=== PATIENT | male | born 1950 | race Hispanic/Latino ===

== ENCOUNTER 2018-02-13 14:24 | Outpatient (CLI) | payer MEDICARE ==
[2018-02-13 14:57] LABS: Hemoglobin 15.8 g/dL (14.0-18.0); Mean Corpuscular HGB CONC 33.8 g/dL (32.0-36.0); Mean Corpuscular Hemoglobin 31.8 pg (27.0-31.0); Mean Corpuscular Volume 94.1 fl (80.0-94.0); Mean Platelet Volume 7.6 fL (7.4-10.4); Platelet Count 182 thou/uL (130-400); RBC Distribution Width 12.3 % (11.5-14.5); Red Blood Cell (RBC) Count 4.97 mill/uL (4.70-6.10)
[2018-02-13 15:03] LABS: PTT 29.2 SEC (22.9-36.1); Prothrombin Time 13.3 SEC (12.0-14.7)
[2018-02-13 15:16] LABS: Anion Gap 12 mmol/L (10-20); BUN (Urea Nitrogen) 29 mg/dL (8.4-25.7); Calc. Creatinine Clearance 0 mL/min (70-130); Calcium 9.8 mg/dL (7.8-10.44); Carbon Dioxide 26 mmol/L (23-31); Chloride 106 mmol/L (98-107); Estimated GFR-MDRD 53; Glucose 151 mg/dL (80-115); Potassium 3.9 mmol/L (3.5-5.1); Sodium 140 mmol/L (136-145)
== END 2018-02-13 14:25 | disposition home or self-care (01) ==
LOC: LABBT 14:24
PROVIDERS: ATTEND Urology
DX: Z01.812 Encounter for preprocedural laboratory examination (principal); N32.9 Bladder disorder, unspecified; T14.8XXA Other injury of unspecified body region, initial encounter
CPT/HCPCS: 80048; 85027; 85610; 85730

== ENCOUNTER 2018-02-17 05:48 | Day surgery (SDC) | payer MEDICARE ==
[2018-02-13 15:04] VITALS: BMI 24.0
[2018-02-17] MEDS ORDERED: CEFAZOLIN/Water 2 GM/20 ML SYRINGE ONE (06:17)
[2018-02-17] MEDS ORDERED: Fentanyl 100 MCG/2 ML VIAL ONE (06:38)
[2018-02-17] MEDS ORDERED: Midazolam HCl 2 mg/2 ml Vial ONE (07:10)
[2018-02-17] MEDS ORDERED: Iothalamate Meglumine 60% 50 ML VIAL FS ONE (07:19)
--- NOTE | 2018-02-17 08:20 | RAD ---
RETROGRADE PYELOGRAM 7 VIEWS: DATE: 02/17/18. HISTORY: A 68-year-old male with hematuria. FINDINGS: Bilateral ureters are normal in caliber. There is no hydronephrosis. No obvious filling defect is i dentified. IMPRESSION: Negative. POS: [facility]TE[facility]
--- NOTE | 2018-02-17 09:02 | OP ---
DATE OF PROCEDURE: 02/17/2018 PREOPERATIVE DIAGNOSIS: Bladder lesion microhematuria. POSTOPERATIVE DIAGNOSIS: Bladder lesion microhematuria. PROCEDURE PERFORMED: Cystoscopy, bilateral retrograde, bladder biopsies. SURGEON: Keegan Graf M.D. ANESTHESIA: General. ESTIMATED BLOOD LOSS: Minimal. FINDINGS: There is no urethral stricture disease, moderately enlarged prostate gland. There was a s mall papillary lesion adjacent lateral to left ureteral orifice. No other abnormalities noted in the bladder. There were normal retrogrades bilaterally. OPERATIVE TECHNIQUE: Obtained written verbal consent from the patient after receiving IV antibiotics , he was taken to the operating suite. He was placed in supine position on treatment table. PlexiPu lses were placed on his lower extremities and turned on. He was given a general anesthetic and oral obturator intubation, placed in the dorsal lithotomy position, sterilely prepped and draped. Cystosc opy was performed with a 22-German sheath. This was well lubricated, passed under direct vision thro ugh the male urethra and into the urinary bladder with aid of a 30 degree lens and a video camera and monitor. The bladder was filled and emptied a number of times and examined with the 30 and the 70-d egree lens with the findings above. A 5-German cone tip catheter was used for the retrograde studies . A template maker film was taken with the fluoroscopy unit. Right retrograde was done by injecting about 10 -12 mL in a retrograde manner up the right ureter and then the left the same way. Drainage films wer e taken on both sides. I saw no persistent filling defects or abnormalities noted. At this point, u sing a 30 degree lens and a video camera and monitor, we biopsied and removed the small papillary les ion with a pair of cold cup forceps and then used the Bugbee electrode to obtain hemostasis. The angelo dder was emptied. There was good hemostasis. He was taken out of dorsal lithotomy position, awakene d, extubated, and taken by stretcher to the recovery room.
[2018-02-17] MEDS ORDERED: PHENYLEPHRINE-NS 100 MCG/ML 10 ML SYRINGE ONE (16:21)
[2018-02-17] MEDS ORDERED: Ondansetron HCl/PF 4 MG/2 ML Vial ONE (16:21)
[2018-02-17] MEDS ORDERED: Lidocaine 1% PF 5 ML VIAL ONE (16:21)
[2018-02-17] MEDS ORDERED: PROPOFOL 200 MG/20 ML VIAL ONE (16:21)
--- NOTE | 2018-02-17 21:13 | EKG ---
Test Reason : PREOP Blood Pressure : / mmHG Vent. Rate : 059 BPM Atrial Rate : 059 BPM P-R Int : 156 ms QRS Dur : 098 ms QT Int : 404 ms P-R-T Axes : 049 034 090 degrees QTc Int : 399 ms Sinus bradycardia Nonspecific ST and T wave abnormality Abnormal ECG No previous ECGs available Confirmed by RADHA AVITIA ([id number]) on 02/17/2018 9:13:05 PM Referred By: LAURY Confirmed By:RADHA AVITIA
== END 2018-02-17 10:08 | disposition home or self-care (01) ==
LOC: SDC 05:48
PROVIDERS: ATTEND Urology
PROC: 0TBB8ZX Excision of Bladder, Via Natural or Artificial Opening Endoscopic, Diagnostic (ICD-10-PCS; principal; 2018-02-17)
DX: D41.4 Neoplasm of uncertain behavior of bladder (principal)
CPT/HCPCS: 74420; 88305; 93005; 93010; C1758; J2001; J2250; J2405; J2704; J3010; Q9961

== ENCOUNTER 2019-08-17 09:13 | Outpatient (CLI) | payer MEDICARE | END 2019-08-17 09:14 | disposition home or self-care (01) | LOC: BICMRI 09:13 | PROVIDERS: ATTEND Ophthalmology | DX: G51.31 Clonic hemifacial spasm, right (principal) | CPT/HCPCS: 82565 ==

== ENCOUNTER 2020-08-25 13:44 | Outpatient (CLI) | payer MEDICARE ==
--- NOTE | 2020-08-25 15:15 | ULT ---
BILATERAL CAROTID DUPLEX ULTRASOUND: HISTORY: Carotid bruit TECHNIQUE: Grayscale, color-flow and spectral Doppler ultrasound imaging of the extracranial carotid artery syst ems was performed bilaterally. FINDINGS: There is plaque formation on both sides. The peak systolic velocity in the right ICA measures 122 cm/s with an end-diastolic velocity of 19 cm /s and a systolic ratio of 1.4. The peak systolic velocity in the left ICA measures 140 cm/s with an end-diastolic velocity of 15 cm/s and a systolic ratio of 0.80. Flow in both vertebral arteries remains antegrade. IMPRESSION: Moderate (50-69%) stenosis of the left ICA
== END 2020-08-25 13:45 | disposition home or self-care (01) ==
LOC: BICULT 13:44
PROVIDERS: ATTEND Psychiatry & Neurology Neurology
DX: G50.0 Trigeminal neuralgia (principal); R09.89 Other specified symptoms and signs involving the circulatory and respiratory systems; I65.22 Occlusion and stenosis of left carotid artery
CPT/HCPCS: 93880

== ENCOUNTER 2021-11-25 19:48 | Inpatient (IN) | payer MEDICARE, OTHER ==
[2021-11-25] MEDS ORDERED: Aspirin Chewable 81 MG TAB ONE ×2 (20:29→20:31)
[2021-11-25] MEDS ORDERED: Metoprolol Tartrate 5 MG/5 ML VIAL ONE (20:30)
[2021-11-25] MEDS ORDERED: Nitroglycerin 2% Ointment 1 INCH/1 GM Packet ONE (20:30)
[2021-11-25 20:37] LABS: #Eosinphils 0.2 thou/uL (0.0-0.7); #Lymphocytes 2.3 thou/uL (1.20-3.40); #Monocytes 0.6 thou/uL (0.11-0.59); #Neutrophils 3.1 thou/uL (1.40-6.50); %Basophils 0.4 % (0.0-1.0); %Lymphocytes 36.3 % (21.0-51.0); %Monocytes 9.4 % (0.0-10.0); %Neutrophils 49.8 % (42.0-75.0); Hemoglobin 14.6 g/dL (14.0-18.0); Mean Corpuscular HGB CONC 33.3 g/dL (32.0-36.0); Mean Corpuscular Hemoglobin 31.7 pg (27.0-31.0); Mean Platelet Volume 7.5 fL (7.4-10.4); Platelet Count 175 thou/uL (130-400); RBC Distribution Width 11.9 % (11.5-14.5); White Blood Cell (WBC) Count 6.3 thou/uL (4.8-10.8)
[2021-11-25 21:08] LABS: ALT (SGPT) 20 U/L (8-55); AST (SGOT) 20 U/L (5-34); Albumin 3.7 g/dL (3.4-4.8); Alkaline Phosphatase 109 U/L (40-110); Anion Gap 15 mmol/L (10-20); BUN (Urea Nitrogen) 26 mg/dL (8.4-25.7); Bilirubin, Total 0.4 mg/dL (0.2-1.2); CK (CPK) 71 U/L (30-200); Calc. Creatinine Clearance 0 mL/min (70-130); Calcium 8.9 mg/dL (7.8-10.44); Carbon Dioxide 24 mmol/L (23-31); Chloride 104 mmol/L (98-107); Globulin 3.1 g/dL (2.4-3.5); Glucose 176 mg/dL (83-110); Lipase 34 U/L (8-78); Potassium 3.3 mmol/L (3.5-5.1); Protein, Total 6.8 g/dL (5.8-8.1); Sodium 140 mmol/L (136-145)
[2021-11-25] MEDS ORDERED: hydrALAZINE 20 MG/ML VIAL ONE (21:25)
[2021-11-25 23:50] LABS: Troponin I 0.014 ng/mL (< 0.028)
[2021-11-25] MEDS ORDERED: Ondansetron PF 4 MG/2 ML Vial IVP PRN (23:59)
[2021-11-25] MEDS ORDERED: Ondansetron ODT 4 MG TAB PO PRN (23:59)
[2021-11-25] MEDS ORDERED: Acetaminophen 650 MG Suppository PR PRN (23:59)
[2021-11-25] MEDS ORDERED: Dextrose 50% Abboject 50 ML SYRINGE SLOW IVP PRN (23:59)
[2021-11-25] MEDS ORDERED: HumaLOG 300 UNITS/3 ML VIAL SC PRN (23:59)
[2021-11-25] MEDS ORDERED: Dextrose 5% in Water 1,000 ML IV PRN (23:59)
[2021-11-25] MEDS ORDERED: Acetaminophen 325 MG TAB PO PRN (23:59)
[2021-11-26] MEDS ORDERED: Electrolyte Replacement Protocol 1 EACH FS PRN (00:45)
[2021-11-26] MEDS ORDERED: Potassium Chloride 20 MEQ TAB PO SCH (00:45)
[2021-11-26] MEDS ORDERED: Nitroglycerin 0.4 MG TAB (25 Tab Bottle) SL PRN (01:00)
[2021-11-26 01:39] LABS: Magnesium 1.7 mg/dL (1.6-2.6)
[2021-11-26 03:23] LABS: #Basophils 0.1 thou/uL (0.0-0.2); #Eosinphils 0.2 thou/uL (0.0-0.7); #Lymphocytes 2.4 thou/uL (1.20-3.40); #Monocytes 0.5 thou/uL (0.11-0.59); #Neutrophils 2.9 thou/uL (1.40-6.50); %Basophils 0.9 % (0.0-1.0); %Eosinophils 3.1 % (0.0-10.0); %Lymphocytes 39.8 % (21.0-51.0); %Monocytes 8.4 % (0.0-10.0); %Neutrophils 47.8 % (42.0-75.0); Hemoglobin 14.2 g/dL (14.0-18.0); Mean Corpuscular HGB CONC 33.4 g/dL (32.0-36.0); Mean Corpuscular Hemoglobin 31.7 pg (27.0-31.0); Mean Corpuscular Volume 94.8 fL (78.0-98.0); Mean Platelet Volume 7.7 fL (7.4-10.4); Platelet Count 172 thou/uL (130-400); Red Blood Cell (RBC) Count 4.48 mill/uL (4.70-6.10)
[2021-11-26 03:31] LABS: SARS-CoV-2 NAA Rapid Test Not Detected (NotDetected)
[2021-11-26 03:44] LABS: Anion Gap 15 mmol/L (10-20); BUN (Urea Nitrogen) 23 mg/dL (8.4-25.7); Calc. Creatinine Clearance 0 mL/min (70-130); Calcium 8.4 mg/dL (7.8-10.44); Carbon Dioxide 21 mmol/L (23-31); Chloride 105 mmol/L (98-107); Glucose 148 mg/dL (83-110); Magnesium 1.8 mg/dL (1.6-2.6); Sodium 138 mmol/L (136-145)
[2021-11-26] MEDS ORDERED: Potassium Chloride 20 MEQ TAB ONE (03:45)
[2021-11-26 03:48] LABS: Troponin I 0.013 ng/mL (< 0.028)
[2021-11-26] MEDS ORDERED: Aspirin Chewable 81 MG TAB ONE (10:02)
[2021-11-26] MEDS ORDERED: Enoxaparin Sodium 40 MG/0.4 ML SYRINGE ONE (10:02)
[2021-11-26] MEDS ORDERED: hydrALAZINE 20 MG/ML VIAL ONE (10:04)
[2021-11-26] MEDS: Aspirin Chewable 81 MG TAB PO SCH (10:11)
[2021-11-26] MEDS: Enoxaparin Sodium 40 MG/0.4 ML SYRINGE SC SCH (10:11)
[2021-11-26] MEDS: hydrALAZINE 20 MG/ML VIAL SLOW IVP PRN (10:12)
[2021-11-26] MEDS ORDERED: HumaLOG 300 UNITS/3 ML VIAL ONE (10:14)
[2021-11-26] MEDS: HumaLOG 300 UNITS/3 ML VIAL SC PRN ×2 (10:21→17:46)
[2021-11-26 10:33] VITALS: BMI 23.7
[2021-11-26] MEDS ORDERED: Hydrochlorothiazide 25 MG TAB PO SCH (11:00)
[2021-11-26] MEDS ORDERED: Lisinopril 20 MG TAB PO SCH (11:00)
[2021-11-26] MEDS ORDERED: Magnesium 2 GM/50 ML 2 GM in Premix Bag 1 BAG IVPB SCH (11:15)
[2021-11-26] MEDS ORDERED: Magnesium 2 GM/50 ML BAG (IN WATER) ONE (12:04)
[2021-11-26] MEDS ORDERED: cloNIDine 0.1 MG TAB PO SCH (16:00)
[2021-11-26] MEDS: Atorvastatin Calcium 20 MG TAB PO SCH (21:03)
[2021-11-26] MEDS: OXcarbazepine 300 MG TAB PO SCH (21:04)
[2021-11-27] MEDS: hydrALAZINE 20 MG/ML VIAL SLOW IVP PRN ×3 (06:13→23:30)
[2021-11-27] MEDS ORDERED: Hydrochlorothiazide 25 MG TAB PO SCH (09:00)
[2021-11-27] MEDS: Amlodipine 5 MG TAB PO SCH (10:05)
[2021-11-27] MEDS: OXcarbazepine 300 MG TAB PO SCH ×2 (10:06→20:08)
[2021-11-27] MEDS: Aspirin Chewable 81 MG TAB PO SCH (10:06)
[2021-11-27] MEDS: Lisinopril 20 MG TAB PO SCH (10:07)
[2021-11-27] MEDS: Enoxaparin Sodium 40 MG/0.4 ML SYRINGE SC SCH ×2 (10:07→20:06)
[2021-11-27 10:19] LABS: Anion Gap 15 mmol/L (10-20); BUN (Urea Nitrogen) 17 mg/dL (8.4-25.7); Calc. Creatinine Clearance 68 mL/min (70-130); Calcium 9.3 mg/dL (7.8-10.44); Carbon Dioxide 23 mmol/L (23-31); Chloride 103 mmol/L (98-107); Glucose 166 mg/dL (83-110); Potassium 3.3 mmol/L (3.5-5.1); Sodium 138 mmol/L (136-145)
[2021-11-27] MEDS ORDERED: Potassium Chloride 20 MEQ TAB PO SCH (10:30)
[2021-11-27] MEDS: HumaLOG 300 UNITS/3 ML VIAL SC PRN (12:01)
[2021-11-27] MEDS ORDERED: Sodium Chloride 0.9% 1,000 ML IV SCH (13:30)
[2021-11-27] MEDS ORDERED: Metoprolol Tartrate 25 MG TAB PO SCH (13:45)
[2021-11-27] MEDS ORDERED: hydrALAZINE 25 MG TAB PO PRN (16:04)
[2021-11-27] MEDS: Metoprolol Tartrate 25 MG TAB PO SCH (20:07)
[2021-11-27] MEDS: Atorvastatin Calcium 20 MG TAB PO SCH (20:07)
[2021-11-28] MEDS: Aspirin Chewable 81 MG TAB PO SCH (05:19)
[2021-11-28] MEDS: Lisinopril 20 MG TAB PO SCH (05:20)
[2021-11-28] MEDS: Metoprolol Tartrate 25 MG TAB PO SCH ×2 (05:20→22:16)
[2021-11-28] MEDS: Amlodipine 5 MG TAB PO SCH (05:21)
[2021-11-28] MEDS: OXcarbazepine 300 MG TAB PO SCH ×2 (05:22→22:16)
[2021-11-28 05:34] LABS: Anion Gap 15 mmol/L (10-20); BUN (Urea Nitrogen) 19 mg/dL (8.4-25.7); Calc. Creatinine Clearance 68 mL/min (70-130); Calcium 9.1 mg/dL (7.8-10.44); Carbon Dioxide 19 mmol/L (23-31); Cardiac Risk 4.9 (Less than 4.5); Chloride 106 mmol/L (98-107); Cholesterol 163 mg/dl (< 200 Desired); Glucose 132 mg/dL (83-110); HDL Cholesterol 33 mg/dL (>60 Neg Risk); LDL Cholesterol, Calculated 93 mg/dL; Potassium 3.2 mmol/L (3.5-5.1); Sodium 137 mmol/L (136-145); Triglycerides 184 mg/dL (Less than 150)
[2021-11-28] MEDS ORDERED: Sodium Chloride 0.9% 1,000 ML IV SCH ×2 (06:00→07:41)
[2021-11-28] MEDS ORDERED: Potassium Chloride 20 MEQ TAB PO SCH ×2 (06:00→08:00)
[2021-11-28] MEDS ORDERED: Heparin 10,000 UNITS/ 10 ML VIAL ONE (06:21)
[2021-11-28] MEDS ORDERED: Fentanyl 100 MCG/2 ML VIAL ONE (06:59)
[2021-11-28] MEDS ORDERED: Midazolam HCl 2 mg/2 ml Vial ONE (07:00)
[2021-11-28] MEDS ORDERED: Heparin 25,000 units/D5W 500 ML ONE (07:30)
[2021-11-28] MEDS ORDERED: Nitroglycerin 0.4 MG TAB (25 Tab Bottle) SL PRN (07:37)
[2021-11-28] MEDS ORDERED: Acetaminophen/Codeine 30-300mg Tablet PO PRN ×2 (07:37)
[2021-11-28] MEDS ORDERED: Sodium Chloride 0.9% 200 ML IV PRN (07:37)
[2021-11-28] MEDS ORDERED: Heparin 10,000 UNITS/ 10 ML VIAL SLOW IVP SCH (07:45)
[2021-11-28] MEDS ORDERED: Hydrochlorothiazide 25 MG TAB PO SCH (09:00)
[2021-11-28] MEDS ORDERED: hydrALAZINE 20 MG/ML VIAL ONE (10:18)
[2021-11-28] MEDS: hydrALAZINE 20 MG/ML VIAL SLOW IVP PRN (10:20)
[2021-11-28] MEDS ORDERED: Communication Order-Pharmacy FS PRN (10:24)
[2021-11-28] MEDS ORDERED: Iopamidol 370 76% 50 ML VIAL FS ONE (11:04)
[2021-11-28] MEDS ORDERED: Iopamidol 370 76% 100 ML VIAL ONE (11:04)
[2021-11-28] MEDS: Atorvastatin Calcium 20 MG TAB PO SCH (22:16)
[2021-11-29 04:09] LABS: Anion Gap 11 mmol/L (10-20); BUN (Urea Nitrogen) 12 mg/dL (8.4-25.7); Calc. Creatinine Clearance 95 mL/min (70-130); Calcium 7.3 mg/dL (7.8-10.44); Carbon Dioxide 17 mmol/L (23-31); Chloride 112 mmol/L (98-107); Glucose 126 mg/dL (83-110); Potassium 2.9 mmol/L (3.5-5.1); Sodium 137 mmol/L (136-145)
[2021-11-29] MEDS: Potassium Chloride 40 MEQ in Sodium Chloride 0.9% 250 ML 250 ML IVPB SCH ×2 (04:36→08:21)
[2021-11-29] MEDS ORDERED: Dexamethasone 4 mg/ml Vial ONE (06:38)
[2021-11-29] MEDS ORDERED: Albumin 5% 500 ML ONE (06:38)
[2021-11-29] MEDS ORDERED: Bupivacaine PF 0.5% 30 ML VIAL ONE (06:38)
[2021-11-29] MEDS ORDERED: EPINEPHrine 1 MG/ML AMP ONE (06:38)
[2021-11-29] MEDS ORDERED: Phenylephrine 10 MG/ML VIAL ONE (06:57)
[2021-11-29] MEDS ORDERED: Fentanyl 250 MCG/5 ML VIAL ONE ×3 (06:57→06:58)
[2021-11-29] MEDS ORDERED: Midazolam HCl 5 mg/5 ml Vial ONE (06:59)
[2021-11-29] MEDS ORDERED: Metoprolol Tartrate 5 MG/5 ML VIAL ONE (07:09)
[2021-11-29] MEDS ORDERED: ceFAZolin Sodium/D5W 2 GM in Premix Bag 1 BAG IVPB SCH (07:30)
[2021-11-29] MEDS ORDERED: Heparin 10,000 UNITS/1 ML VIAL 30,000 UNITS in Sodium Chloride 0.9% 1,000 ML FS SCH (07:30)
[2021-11-29] MEDS ORDERED: Metoprolol Tartrate 5 MG/5 ML VIAL IVP SCH (07:30)
[2021-11-29] MEDS ORDERED: Vecuronium 10 MG VIAL ONE (07:39)
[2021-11-29] MEDS ORDERED: Nitroglycerin 50 MG/250 ML BOT ONE (07:39)
[2021-11-29] MEDS ORDERED: Cardioplegic Soln 1,000 ML BAG ONE (07:39)
[2021-11-29] MEDS ORDERED: ePHEDrine 50 MG/ML VIAL ONE (07:39)
[2021-11-29] MEDS ORDERED: Lidocaine 2% PF 100 mg/5 ml Syringe ONE (07:39)
[2021-11-29] MEDS ORDERED: Magnesium Sulfate 1 GM/2 ML VIAL ONE (07:39)
[2021-11-29] MEDS ORDERED: PROPOFOL 200 MG/20 ML VIAL ONE (07:39)
[2021-11-29] MEDS ORDERED: Norepinephrine 4 MG/4 ML VIAL ONE (07:39)
[2021-11-29] MEDS ORDERED: Aminocaproic Acid 5 GM/20 ML VIAL ONE (07:39)
[2021-11-29] MEDS ORDERED: Heparin 30,000 units/30 ml VIAL ONE (07:39)
[2021-11-29] MEDS ORDERED: Lidocaine 2% PF 5 ML VIAL ONE (07:39)
[2021-11-29] MEDS ORDERED: Papaverine 60 MG/2 ML VIAL ONE (07:39)
[2021-11-29] MEDS ORDERED: Mannitol 12.5 GM/50 ML ONE (07:39)
[2021-11-29] MEDS ORDERED: Heparin 5,000 UNITS/ML VIAL ONE (07:39)
[2021-11-29] MEDS ORDERED: Potassium Chloride 60 MEQ/30 ML VIAL ONE (07:39)
[2021-11-29] MEDS ORDERED: Sodium Bicarb 50 MEQ/50 ML Abboject 8.4% SYRINGE ONE (07:39)
[2021-11-29] MEDS ORDERED: Thrombin 5000 UNITS/5 ML VIAL ONE (07:39)
[2021-11-29] MEDS ORDERED: Rocuronium Bromide 10 MG/ML (10ML VIAL) ONE (07:39)
[2021-11-29] MEDS ORDERED: ceFAZolin 2 GM/Dextrose 50 ML IVPB ONE (08:04)
[2021-11-29] MEDS: Lisinopril 20 MG TAB PO SCH (08:21)
[2021-11-29] MEDS: Metoprolol Tartrate 25 MG TAB PO SCH (08:21)
[2021-11-29] MEDS ORDERED: PHENYLEPHRINE-NS 100 MCG/ML 10 ML SYRINGE ONE (09:26)
[2021-11-29 11:44] LABS: Actual Bicarbonate (HCO3a) 21.8 mEq/L (22-28); Base Excess (BEa) -3.4 mEq/L (-2.0 to +3.0); CO2 Tension 39.5 mmHg (35.0-45.0); Carboxyhemoglobin (COHb) 0.5 gm% (0.0-3.0); Hemoglobin (Hb) 12.5 g/dL (14.0-18.0); O2 Tension (PaO2), arterial 139.6 mmHg (> 70.0); Potassium - ABG Lab 3.86 mmol/L (3.70-5.30); pH, Arterial 7.36 (7.35-7.45)
[2021-11-29 11:47] LABS: Puncture Site Arterial Line
[2021-11-29] MEDS ORDERED: Fentanyl 100 MCG/2 ML VIAL ONE (11:47)
[2021-11-29 11:50] LABS: ALV-art Gradient 238.825 mmHg (0-20)
[2021-11-29] MEDS ORDERED: Nitroglycerin 50 MG/250 ML BOT 250 ML ONE (11:54)
[2021-11-29] MEDS ORDERED: Acetaminophen 325 MG TAB PO PRN (11:55)
[2021-11-29] MEDS ORDERED: Guaifenesin DM 100-10/5 ML UDCUP PO PRN (11:55)
[2021-11-29] MEDS ORDERED: Magnesium 2 GM/50 ML 2 GM in Premix Bag 1 BAG IVPB SCH (11:55)
[2021-11-29] MEDS ORDERED: Hetastarch 6% 500 ML 500 ML IVPB PRN (11:55)
[2021-11-29] MEDS ORDERED: Ondansetron PF 4 MG/2 ML Vial IVP PRN (11:55)
[2021-11-29] MEDS ORDERED: Fentanyl 100 MCG/2 ML VIAL SLOW IVP PRN ×2 (11:55)
[2021-11-29] MEDS ORDERED: Morphine 2 MG/ML VIAL SLOW IVP PRN (11:55)
[2021-11-29] MEDS ORDERED: Bisacodyl 5 MG TAB PO PRN (11:55)
[2021-11-29] MEDS ORDERED: Bisacodyl 10 MG SUPP PR PRN (11:55)
[2021-11-29] MEDS ORDERED: Nitroglycerin 50 MG/250 ML BOT 250 ML IVPB PRN (11:55)
[2021-11-29] MEDS ORDERED: Norepinephrine 8 MG/0.9% NS 250 ML IVPB PRN (11:55)
[2021-11-29] MEDS ORDERED: traMADol HCl 50 MG TAB PO PRN ×2 (11:55)
[2021-11-29] MEDS ORDERED: Mag-Al 1200 mg/1200 mg/30 ML UDCUP PO PRN (11:55)
[2021-11-29] MEDS ORDERED: Post-Op Insulin Drip Protocol IVPB ONE (11:55)
[2021-11-29] MEDS ORDERED: D5 1/2 NS w/20 mEq KCL 1,000 ML IV SCH (11:55)
[2021-11-29] MEDS ORDERED: niCARdipine 25 MG in Sodium Chloride 0.9% 250 ML 250 ML IVPB PRN (11:55)
[2021-11-29 12:04] LABS: #Eosinphils 0.2 thou/uL (0.0-0.7); #Lymphocytes 2.5 thou/uL (1.20-3.40); #Monocytes 0.4 thou/uL (0.11-0.59); #Neutrophils 9.8 thou/uL (1.40-6.50); %Basophils 0.3 % (0.0-1.0); %Eosinophils 1.4 % (0.0-10.0); %Lymphocytes 19.1 % (21.0-51.0); %Monocytes 3.1 % (0.0-10.0); %Neutrophils 76.1 % (42.0-75.0); Hemoglobin 12.1 g/dL (14.0-18.0); Mean Corpuscular HGB CONC 32.5 g/dL (32.0-36.0); Mean Corpuscular Hemoglobin 31.4 pg (27.0-31.0); Mean Corpuscular Volume 96.4 fL (78.0-98.0); Platelet Count 139 thou/uL (130-400); RBC Distribution Width 12.1 % (11.5-14.5); Red Blood Cell (RBC) Count 3.84 mill/uL (4.70-6.10); White Blood Cell (WBC) Count 12.9 thou/uL (4.8-10.8)
[2021-11-29] MEDS ORDERED: Dextrose 5% in Water 1,000 ML IV PRN (12:15)
[2021-11-29] MEDS ORDERED: Dextrose 50% Abboject 50 ML SYRINGE SLOW IVP PRN (12:15)
[2021-11-29] MEDS ORDERED: HUMULIN R 100 UNITS in Sodium Chloride 0.9% 100 ML IVPB SCH (12:15)
[2021-11-29 12:24] LABS: INR-International Normal Ratio 1.3; Prothrombin Time 16.8 sec (12.0-14.7)
[2021-11-29 12:25] LABS: PTT 33.8 sec (22.9-36.1)
[2021-11-29 12:26] LABS: Anion Gap 16 mmol/L (10-20); BUN (Urea Nitrogen) 13 mg/dL (8.4-25.7); Calc. Creatinine Clearance 71 mL/min (70-130); Calcium 8.1 mg/dL (7.8-10.44); Carbon Dioxide 19 mmol/L (23-31); Chloride 108 mmol/L (98-107); Glucose 173 mg/dL (83-110); Potassium 3.9 mmol/L (3.5-5.1); Sodium 139 mmol/L (136-145)
[2021-11-29] MEDS ORDERED: Ziprasidone 20 MG VIAL IM SCH (12:30)
[2021-11-29] MEDS ORDERED: Sterile Water 10 ML VIAL FS PRN (12:30)
[2021-11-29] MEDS: Ketorolac Tromethamine 30 MG/ML VIAL IVP SCH ×2 (12:36→18:29)
[2021-11-29] MEDS ORDERED: Potassium Chloride 20 MEQ/100 ML PREMIX BAG ONE (14:01)
[2021-11-29] MEDS: Potassium Chloride 20 MEQ/100 ML PREMIX BAG IVPB PRN ×2 (14:34→19:28)
[2021-11-29] MEDS: Insulin Regular 300 UNITS/3 ML VIAL SC PRN (15:26)
[2021-11-29] MEDS ORDERED: hydrALAZINE 20 MG/ML VIAL SLOW IVP PRN (15:52)
[2021-11-29] MEDS: hydrALAZINE 20 MG/ML VIAL SLOW IVP PRN (16:38)
[2021-11-29] MEDS: ceFAZolin 2 GM/Dextrose 50 ML 2 GM in Premix Bag 1 BAG IVPB SCH (16:49)
[2021-11-29 17:08] LABS: Hemoglobin 13.7 g/dL (14.0-18.0)
[2021-11-29 17:21] LABS: Potassium 3.9 mmol/L (3.5-5.1)
[2021-11-29] MEDS: Famotidine/PF 20 mg/2ml Vial SLOW IVP SCH (21:05)
[2021-11-29] MEDS: Atorvastatin Calcium 40 MG TAB PO SCH (21:06)
[2021-11-30] MEDS: ceFAZolin 2 GM/Dextrose 50 ML 2 GM in Premix Bag 1 BAG IVPB SCH ×2 (00:15→08:18)
[2021-11-30] MEDS: Ketorolac Tromethamine 30 MG/ML VIAL IVP SCH ×4 (00:16→18:21)
[2021-11-30 04:05] LABS: #Lymphocytes 1.1 thou/uL (1.20-3.40); #Monocytes 0.8 thou/uL (0.11-0.59); #Neutrophils 10.2 thou/uL (1.40-6.50); %Monocytes 6.4 % (0.0-10.0); %Neutrophils 84.5 % (42.0-75.0); Hemoglobin 12.7 g/dL (14.0-18.0); Mean Corpuscular HGB CONC 33.4 g/dL (32.0-36.0); Mean Corpuscular Hemoglobin 31.9 pg (27.0-31.0); Mean Corpuscular Volume 95.7 fL (78.0-98.0); Mean Platelet Volume 8.6 fL (7.4-10.4); Platelet Count 131 thou/uL (130-400); RBC Distribution Width 12.2 % (11.5-14.5); Red Blood Cell (RBC) Count 3.99 mill/uL (4.70-6.10); White Blood Cell (WBC) Count 12.1 thou/uL (4.8-10.8)
[2021-11-30 04:23] LABS: Anion Gap 16 mmol/L (10-20); BUN (Urea Nitrogen) 15 mg/dL (8.4-25.7); Calc. Creatinine Clearance 69 mL/min (70-130); Calcium 8.2 mg/dL (7.8-10.44); Carbon Dioxide 18 mmol/L (23-31); Chloride 106 mmol/L (98-107); Glucose 126 mg/dL (83-110); Potassium 3.9 mmol/L (3.5-5.1); Sodium 136 mmol/L (136-145)
[2021-11-30] MEDS: hydrALAZINE 20 MG/ML VIAL SLOW IVP PRN (04:53)
[2021-11-30] MEDS: Potassium Chloride 20 MEQ/100 ML PREMIX BAG IVPB PRN (05:00)
[2021-11-30] MEDS: Famotidine/PF 20 mg/2ml Vial SLOW IVP SCH (08:18)
[2021-11-30] MEDS: Magnesium 2 GM/50 ML 2 GM in Premix Bag 1 BAG IVPB SCH (08:19)
[2021-11-30] MEDS ORDERED: Aspirin 325 MG TAB PO SCH (09:00)
[2021-11-30] MEDS ORDERED: Guaifenesin DM 100-10/5 ML UDCUP PO PRN (09:33)
[2021-11-30] MEDS ORDERED: Nitroglycerin 0.4 MG TAB (25 Tab Bottle) SL PRN (09:33)
[2021-11-30] MEDS ORDERED: diphenhydrAMINE 25 MG CAP PO PRN (09:33)
[2021-11-30] MEDS ORDERED: Milk Of Magnesia 30 ML UDCUP PO PRN (09:33)
[2021-11-30] MEDS ORDERED: Mag-Al 1200 mg/1200 mg/30 ML UDCUP PO PRN (09:33)
[2021-11-30] MEDS ORDERED: Bisacodyl 5 MG TAB PO PRN (09:33)
[2021-11-30] MEDS ORDERED: Zolpidem Tartrate 5 MG TAB PO PRN (09:33)
[2021-11-30] MEDS ORDERED: Bisacodyl 10 MG SUPP PR PRN (09:33)
[2021-11-30] MEDS ORDERED: Mineral Oil ENEMA PR PRN (09:33)
[2021-11-30] MEDS ORDERED: Metoprolol Tartrate 25 MG TAB PO SCH ×2 (11:00→21:00)
[2021-11-30] MEDS: Insulin Regular 300 UNITS/3 ML VIAL SC PRN ×3 (11:24→21:28)
[2021-11-30] MEDS: Atorvastatin Calcium 40 MG TAB PO SCH (21:14)
[2021-12-01] MEDS: Ketorolac Tromethamine 30 MG/ML VIAL IVP SCH ×4 (00:11→17:27)
[2021-12-01] MEDS ORDERED: Non-Formulary Item 1 EACH (Semaglutide [Ozempic] 0.25 MG/0.2 ML Pen.Injctr) FS SCH (07:15)
[2021-12-01] MEDS: OXcarbazepine 300 MG TAB PO SCH ×2 (09:03→20:52)
[2021-12-01] MEDS: Magnesium 2 GM/50 ML 2 GM in Premix Bag 1 BAG IVPB SCH (09:03)
[2021-12-01] MEDS: Aspirin 325 mg Enteric Coated Tablet PO SCH (09:04)
[2021-12-01] MEDS: Empagliflozin 10 MG TAB PO SCH (09:04)
[2021-12-01] MEDS: Furosemide 40 MG TAB PO SCH (09:05)
[2021-12-01] MEDS: Potassium Chloride 10 MEQ TAB PO SCH (09:05)
[2021-12-01] MEDS: metFORMIN 500 MG TAB PO SCH (09:05)
[2021-12-01] MEDS: Carvedilol 3.125 MG TAB PO SCH ×2 (09:19→17:27)
[2021-12-01] MEDS: Atorvastatin Calcium 40 MG TAB PO SCH (20:52)
[2021-12-01] MEDS: Insulin Regular 300 UNITS/3 ML VIAL SC PRN (21:37)
[2021-12-02] MEDS: Ketorolac Tromethamine 30 MG/ML VIAL IVP SCH ×3 (00:59→13:02)
[2021-12-02 03:38] LABS: Hemoglobin 11.8 g/dL (14.0-18.0); Mean Corpuscular HGB CONC 32.9 g/dL (32.0-36.0); Mean Corpuscular Hemoglobin 31.9 pg (27.0-31.0); Mean Corpuscular Volume 97.1 fL (78.0-98.0); Platelet Count 148 thou/uL (130-400); RBC Distribution Width 12.1 % (11.5-14.5); Red Blood Cell (RBC) Count 3.69 mill/uL (4.70-6.10); White Blood Cell (WBC) Count 8.6 thou/uL (4.8-10.8)
[2021-12-02 03:58] LABS: ALT (SGPT) 18 U/L (8-55); AST (SGOT) 34 U/L (5-34); Alkaline Phosphatase 73 U/L (40-110); Anion Gap 13 mmol/L (10-20); BUN (Urea Nitrogen) 28 mg/dL (8.4-25.7); Bilirubin, Total 0.8 mg/dL (0.2-1.2); Calc. Creatinine Clearance 62 mL/min (70-130); Calcium 8.2 mg/dL (7.8-10.44); Carbon Dioxide 23 mmol/L (23-31); Chloride 106 mmol/L (98-107); Globulin 2.8 g/dL (2.4-3.5); Glucose 97 mg/dL (83-110); Potassium 3.5 mmol/L (3.5-5.1); Protein, Total 5.8 g/dL (5.8-8.1); Sodium 138 mmol/L (136-145)
[2021-12-02] MEDS: metFORMIN 500 MG TAB PO SCH (08:52)
[2021-12-02] MEDS: Carvedilol 3.125 MG TAB PO SCH (08:52)
[2021-12-02] MEDS: Furosemide 40 MG TAB PO SCH (08:52)
[2021-12-02] MEDS: OXcarbazepine 300 MG TAB PO SCH (08:52)
[2021-12-02] MEDS: Empagliflozin 10 MG TAB PO SCH (08:52)
[2021-12-02] MEDS: Aspirin 325 mg Enteric Coated Tablet PO SCH (08:52)
[2021-12-02] MEDS: Potassium Chloride 10 MEQ TAB PO SCH (08:52)
[2021-12-02] MEDS: hydrALAZINE 20 MG/ML VIAL SLOW IVP PRN (09:02)
[2021-12-02 12:25] VITALS: TEMP 98.4
[2021-12-02] MEDS ORDERED: Albuterol Sulfate 1.25 MG/3 ML NEB ONE (12:46)
[2021-12-02] MEDS: Insulin Regular 300 UNITS/3 ML VIAL SC PRN (13:03)
[2021-12-02 16:18] VITALS: BP 152/88
[2021-12-03] MEDS ORDERED: Multivit, Chewable SF 1 TAB PO SCH (09:00)
== END 2021-12-02 16:00 | disposition home or self-care (01) | DRG 234 ==
LOC: ERS 19:48 → ERHOLD 21:42 → 2NO 11-26 16:51 → CCU 11-28 07:42 → 2NO 12-01 18:48
PROVIDERS: ADMIT Student in an Organized Health Care Education/Training Program; ATTEND Internal Medicine
PROC: 4A023N7 Measurement of Cardiac Sampling and Pressure, Left Heart, Percutaneous Approach (ICD-10-PCS; principal; 2021-11-28)
PROC: B2111ZZ Fluoroscopy of Multiple Coronary Arteries using Low Osmolar Contrast (ICD-10-PCS; 2021-11-28)
PROC: B2151ZZ Fluoroscopy of Left Heart using Low Osmolar Contrast (ICD-10-PCS; 2021-11-28)
PROC: 0213099 Bypass Coronary Artery, Four or More Arteries from Left Internal Mammary with Autologous Venous Tissue, Open Approach (ICD-10-PCS; 2021-11-29)
PROC: 0213093 Bypass Coronary Artery, Four or More Arteries from Coronary Artery with Autologous Venous Tissue, Open Approach (ICD-10-PCS; 2021-11-29)
PROC: 06BQ4ZZ Excision of Left Saphenous Vein, Percutaneous Endoscopic Approach (ICD-10-PCS; 2021-11-29)
PROC: 5A1221Z Performance of Cardiac Output, Continuous (ICD-10-PCS; 2021-11-29)
DX: I25.10 Atherosclerotic heart disease of native coronary artery without angina pectoris (principal); I16.1 Hypertensive emergency; N17.9 Acute kidney failure, unspecified; I50.42 Chronic combined systolic (congestive) and diastolic (congestive) heart failure; I13.0 Hypertensive heart and chronic kidney disease with heart failure and stage 1 through stage 4 chronic kidney disease, or unspecified chronic kidney disease; Z20.822 Contact with and (suspected) exposure to COVID-19; E78.5 Hyperlipidemia, unspecified; I16.0 Hypertensive urgency; E11.22 Type 2 diabetes mellitus with diabetic chronic kidney disease; N18.9 Chronic kidney disease, unspecified; E87.6 Hypokalemia; G40.909 Epilepsy, unspecified, not intractable, without status epilepticus; Z79.84 Long term (current) use of oral hypoglycemic drugs; Z87.891 Personal history of nicotine dependence; Z79.899 Other long term (current) drug therapy; Z79.82 Long term (current) use of aspirin; D72.829 Elevated white blood cell count, unspecified
CPT/HCPCS: 36415; 36416; 36430; 71045; 78452; 80048; 80053; 80061; 82550; 82805; 83690; 83735; 83880; 84132; 84484; 85025; 85027; 85347; 85610; 85730; 86850; 86900; 86901; 93005; 93010; 93017; 93306; 93458; 93798; 94002; 94150; 94760; 96374; 96375; 97139; 99152; 99153; A9500; J0171; J0360; J0690; J1100; J1644; J1650; J1815; J1885; J2001; J2150; J2250; J2370; J2440; J2704; J3010; J3370; J3475; J3480; J3486; J3490; J7050; P9045; Q9967; S0017; S0020; S0028; U0002

== ENCOUNTER 2022-08-29 08:32 | Outpatient (CLI) | payer MEDICARE | END 2022-08-29 08:33 | disposition home or self-care (01) | LOC: RAD 08:32 | PROVIDERS: ATTEND Otolaryngology | DX: R13.11 Dysphagia, oral phase (principal); R13.12 Dysphagia, oropharyngeal phase; R63.39 Other feeding difficulties | CPT/HCPCS: 74230 ==

== ENCOUNTER 2022-09-02 13:28 | Inpatient (IN) | payer MEDICARE ==
[2022-09-02] MEDS ORDERED: Labetalol HCl 100 MG/20 ML VIAL ONE (14:22)
[2022-09-02] MEDS ORDERED: Ondansetron PF 4 MG/2 ML Vial ONE (14:22)
[2022-09-02 14:36] LABS: #Basophils 0.1 thou/uL (0.0-0.2); #Eosinphils 0.1 thou/uL (0.0-0.7); #Lymphocytes 2.1 thou/uL (1.20-3.40); #Monocytes 0.5 thou/uL (0.11-0.59); #Neutrophils 6.3 thou/uL (1.40-6.50); %Basophils 0.6 % (0.0-1.0); %Eosinophils 1.2 % (0.0-10.0); %Lymphocytes 22.8 % (21.0-51.0); %Monocytes 5.9 % (0.0-10.0); %Neutrophils 69.6 % (42.0-75.0); Hemoglobin 14.1 g/dL (14.0-18.0); Mean Corpuscular Hemoglobin 31.5 pg (27.0-31.0); Mean Corpuscular Volume 98.3 fL (78.0-98.0); Mean Platelet Volume 8.6 fL (7.4-10.4); Platelet Count 160 thou/uL (130-400); RBC Distribution Width 11.9 % (11.5-14.5); Red Blood Cell (RBC) Count 4.48 mill/uL (4.70-6.10); White Blood Cell (WBC) Count 9.1 thou/uL (4.8-10.8)
[2022-09-02 14:45] LABS: ALT (SGPT) 40 U/L (8-55); AST (SGOT) 31 U/L (5-34); Albumin 3.8 g/dL (3.4-4.8); Alkaline Phosphatase 114 U/L (40-110); Anion Gap 14 mmol/L (10-20); BUN (Urea Nitrogen) 23 mg/dL (8.4-25.7); Bilirubin, Total 0.9 mg/dL (0.2-1.2); Calc. Creatinine Clearance 0 mL/min (70-130); Calcium 9.9 mg/dL (7.8-10.44); Carbon Dioxide 29 mmol/L (23-31); Chloride 102 mmol/L (98-107); Estimated GFR 59; Globulin 4.2 g/dL (2.4-3.5); Glucose 122 mg/dL (83-110); Sodium 141 mmol/L (136-145)
[2022-09-02 15:08] LABS: Bacteria/HPF None Seen HPF (None Seen); Bilirubin Negative (Negative); Blood, Urine Negative (Negative); Clarity Clear (Clear); Glucose, Urine (Dipstick) Greater than 1000 mg/dL (Negative); Ketone, Urine 20 mg/dL (Negative); Leukocyte Negative Leu/uL (Negative); Nitrite Negative (Negative); Protein, Urine (Dipstick) 70 mg/dL (Neg-Trace); RBC/HPF 0-3 HPF (0-3); Specific Gravity, Urine 1.025 (1.002-1.036); Squamous Epithelial 0-3 HPF (0-3); Urobilinogen Normal mg/dL (Less than 2); WBC/HPF 0-3 HPF (0-3); pH, Urine 6.5 (5.0-9.0)
[2022-09-02] MEDS ORDERED: Magnevist 469MG/ML 20 ML VIAL ONE ×2 (15:40)
[2022-09-02] MEDS ORDERED: Ondansetron PF 4 MG/2 ML Vial IVP PRN (17:47)
[2022-09-02] MEDS ORDERED: Dextrose 5% in Water 1,000 ML IV PRN (18:14)
[2022-09-02] MEDS ORDERED: Dextrose 50% Abboject 50 ML SYRINGE SLOW IVP PRN (18:14)
[2022-09-02] MEDS ORDERED: Labetalol HCl 100 MG/20 ML VIAL SLOW IVP SCH (18:30)
[2022-09-02] MEDS ORDERED: Morphine 2 MG/ML VIAL SLOW IVP PRN (18:46)
[2022-09-02] MEDS: hydrALAZINE 20 MG/ML VIAL SLOW IVP PRN (21:27)
[2022-09-02] MEDS: Sodium Chloride 0.9% 1,000 ML IV SCH (21:33)
[2022-09-02] MEDS: Fluticasone Propionate Nasal Spray 16 gm Bottle NASAL SCH (22:25)
[2022-09-02] MEDS: Sodium Chloride 0.65% Nasal 44 ML BOT EA NARE PRN (23:51)
[2022-09-03] MEDS: Sodium Chloride 0.65% Nasal 44 ML BOT EA NARE PRN (05:55)
[2022-09-03 06:02] LABS: #Eosinphils 0.1 thou/uL (0.0-0.7); #Lymphocytes 1.4 thou/uL (1.20-3.40); #Monocytes 0.5 thou/uL (0.11-0.59); #Neutrophils 5.4 thou/uL (1.40-6.50); %Basophils 0.2 % (0.0-1.0); %Eosinophils 0.8 % (0.0-10.0); %Lymphocytes 19.3 % (21.0-51.0); %Monocytes 6.2 % (0.0-10.0); %Neutrophils 73.4 % (42.0-75.0); Hemoglobin 12.6 g/dL (14.0-18.0); Mean Corpuscular HGB CONC 31.9 g/dL (32.0-36.0); Mean Corpuscular Hemoglobin 31.1 pg (27.0-31.0); Mean Corpuscular Volume 97.6 fL (78.0-98.0); Mean Platelet Volume 8.1 fL (7.4-10.4); Platelet Count 179 thou/uL (130-400); RBC Distribution Width 11.9 % (11.5-14.5); Red Blood Cell (RBC) Count 4.05 mill/uL (4.70-6.10); White Blood Cell (WBC) Count 7.4 thou/uL (4.8-10.8)
[2022-09-03 06:24] LABS: ALT (SGPT) 29 U/L (8-55); AST (SGOT) 17 U/L (5-34); Albumin 3.5 g/dL (3.4-4.8); Alkaline Phosphatase 101 U/L (40-110); Anion Gap 14 mmol/L (10-20); BUN (Urea Nitrogen) 20 mg/dL (8.4-25.7); Bilirubin, Total 0.8 mg/dL (0.2-1.2); Calc. Creatinine Clearance 0 mL/min (70-130); Calcium 9.3 mg/dL (7.8-10.44); Carbon Dioxide 26 mmol/L (23-31); Chloride 104 mmol/L (98-107); Estimated GFR 74; Globulin 3.4 g/dL (2.4-3.5); Glucose 110 mg/dL (83-110); Potassium 3.6 mmol/L (3.5-5.1); Protein, Total 6.9 g/dL (5.8-8.1); Sodium 140 mmol/L (136-145)
[2022-09-03] MEDS: Sodium Chloride 0.9% 1,000 ML IV SCH (08:11)
[2022-09-03] MEDS: Fluticasone Propionate Nasal Spray 16 gm Bottle NASAL SCH ×2 (08:11→22:03)
[2022-09-03] MEDS ORDERED: Lorazepam 2 MG/ML VIAL SLOW IVP SCH (08:30)
[2022-09-03] MEDS ORDERED: Amino Acids 4.25 %/Dextrose 5% 2,000 ML BAG IV SCH (09:59)
[2022-09-03] MEDS: hydrALAZINE 20 MG/ML VIAL SLOW IVP PRN ×2 (11:01→20:47)
[2022-09-03] MEDS: D5W-AA 4.25% with LYTES 1,000 ML IV SCH (11:55)
[2022-09-03 12:50] VITALS: BMI 18.1
[2022-09-04] MEDS: HumaLOG 300 UNITS/3 ML VIAL SC PRN (00:40)
[2022-09-04] MEDS: D5W-AA 4.25% with LYTES 1,000 ML IV SCH (01:11)
[2022-09-04 05:27] LABS: INR-International Normal Ratio 1.1; PTT 34.4 sec (22.9-36.1)
[2022-09-04 05:45] LABS: Anion Gap 12 mmol/L (10-20); BUN (Urea Nitrogen) 25 mg/dL (8.4-25.7); Calc. Creatinine Clearance 51 mL/min (70-130); Calcium 9.9 mg/dL (7.8-10.44); Carbon Dioxide 25 mmol/L (23-31); Chloride 101 mmol/L (98-107); Estimated GFR 72; Glucose 158 mg/dL (83-110); Phosphorus 2.8 mg/dL (2.3-4.7); Potassium 3.3 mmol/L (3.5-5.1); Sodium 135 mmol/L (136-145)
[2022-09-04] MEDS: hydrALAZINE 20 MG/ML VIAL SLOW IVP PRN (08:28)
[2022-09-04] MEDS: Fluticasone Propionate Nasal Spray 16 gm Bottle NASAL SCH ×2 (08:28→20:54)
[2022-09-04] MEDS ORDERED: fentaNYL Citrate/PF 100 MCG/2 ML SYRINGE ONE (08:59)
[2022-09-04] MEDS ORDERED: Oxymetazoline HCl 0.05% (30 ML BOT) ONE ×2 (09:06→09:07)
[2022-09-04] MEDS ORDERED: Lidocaine 1% (PF) 30 ML VIAL ONE (09:06)
[2022-09-04] MEDS ORDERED: EPINEPHrine 1 MG/ML AMP ONE (09:06)
[2022-09-04] MEDS ORDERED: PROPOFOL 200 MG/20 ML VIAL ONE (09:33)
[2022-09-04] MEDS ORDERED: NEOSTIGMINE 3 MG/3 ML SYR 3 MG/3 ML SYRINGE ONE (09:33)
[2022-09-04] MEDS ORDERED: Ondansetron PF 4 MG/2 ML Vial ONE (09:33)
[2022-09-04] MEDS ORDERED: Glycopyrrolate 0.2 MG/ML 5 ML SYRINGE ONE (09:33)
[2022-09-04] MEDS ORDERED: Rocuronium Bromide 10 MG/ML (10ML VIAL) ONE (09:33)
[2022-09-04] MEDS ORDERED: Dexamethasone 20 MG/5 ML VIAL ONE (09:33)
[2022-09-04] MEDS ORDERED: Potassium Bicarbonate/Cit Ac 20 MEQ TAB PO SCH (10:00)
[2022-09-04] MEDS ORDERED: hydrALAZINE 20 MG/ML VIAL ONE (10:47)
[2022-09-04] MEDS: Carvedilol 3.125 MG TAB PO SCH (16:39)
[2022-09-04] MEDS: Sodium Chloride 0.65% Nasal 44 ML BOT EA NARE PRN (16:44)
[2022-09-04] MEDS: Atorvastatin Calcium 40 MG TAB PO SCH (20:45)
[2022-09-05 05:23] LABS: #Lymphocytes 1.6 thou/uL (1.20-3.40); #Monocytes 0.5 thou/uL (0.11-0.59); %Basophils 0.1 % (0.0-1.0); %Eosinophils 0.1 % (0.0-10.0); %Lymphocytes 13.9 % (21.0-51.0); %Monocytes 4.8 % (0.0-10.0); %Neutrophils 81.1 % (42.0-75.0); Mean Corpuscular HGB CONC 32.1 g/dL (32.0-36.0); Mean Corpuscular Hemoglobin 31.1 pg (27.0-31.0); Mean Corpuscular Volume 97.1 fl (78.0-98.0); Mean Platelet Volume 8.2 fL (7.4-10.4); Platelet Count 180 thou/uL (130-400); Red Blood Cell (RBC) Count 4.17 mill/uL (4.70-6.10); White Blood Cell (WBC) Count 11.1 thou/uL (4.8-10.8)
[2022-09-05 06:51] LABS: Anion Gap 12 mmol/L (10-20); BUN (Urea Nitrogen) 29 mg/dL (8.4-25.7); Calc. Creatinine Clearance 46 mL/min (70-130); Calcium 9.7 mg/dL (7.8-10.44); Carbon Dioxide 27 mmol/L (23-31); Chloride 103 mmol/L (98-107); Estimated GFR 63; Glucose 121 mg/dL (83-110); Magnesium 2.1 mg/dL (1.6-2.6); Potassium 3.8 mmol/L (3.5-5.1); Sodium 138 mmol/L (136-145)
[2022-09-05] MEDS: Carvedilol 3.125 MG TAB PO SCH ×2 (08:39→17:06)
[2022-09-05] MEDS: Fluticasone Propionate Nasal Spray 16 gm Bottle NASAL SCH ×2 (08:44→21:25)
[2022-09-05] MEDS ORDERED: Aspirin 325 mg Enteric Coated Tablet PO SCH (09:00)
[2022-09-05] MEDS ORDERED: Iopamidol 370 76% 100 ML VIAL ONE (09:41)
[2022-09-05] MEDS: Dextrose 5 %-0.45 % NaCl 1,000 ML IV SCH (11:32)
[2022-09-05] MEDS: Dexamethasone 10 MG/ML VIAL SLOW IVP SCH ×2 (11:32→21:25)
[2022-09-05] MEDS: hydrALAZINE 20 MG/ML VIAL SLOW IVP PRN (12:21)
[2022-09-05] MEDS ORDERED: Polyethylene Glycol 3350 17 GM Packet PO PRN (16:40)
[2022-09-05] MEDS: HumaLOG 300 UNITS/3 ML VIAL SC PRN (18:12)
[2022-09-05] MEDS: Atorvastatin Calcium 40 MG TAB PO SCH (21:25)
[2022-09-05] MEDS: Morphine 4 MG/ML VIAL SLOW IVP PRN (21:45)
[2022-09-06] MEDS: Dextrose 5 %-0.45 % NaCl 1,000 ML IV SCH ×2 (01:28→20:28)
[2022-09-06 05:12] LABS: #Lymphocytes 0.6 thou/uL (1.20-3.40); #Monocytes 0.1 thou/uL (0.11-0.59); #Neutrophils 5.4 thou/uL (1.40-6.50); %Basophils 0.7 % (0.0-1.0); %Eosinophils 0.1 % (0.0-10.0); %Lymphocytes 9.8 % (21.0-51.0); %Neutrophils 88.4 % (42.0-75.0); Hemoglobin 13.4 g/dL (14.0-18.0); Mean Corpuscular HGB CONC 31.7 g/dL (32.0-36.0); Mean Corpuscular Hemoglobin 31.1 pg (27.0-31.0); Mean Corpuscular Volume 98.3 fl (78.0-98.0); Mean Platelet Volume 8.3 fL (7.4-10.4); Platelet Count 190 thou/uL (130-400); Red Blood Cell (RBC) Count 4.32 mill/uL (4.70-6.10); White Blood Cell (WBC) Count 6.1 thou/uL (4.8-10.8)
[2022-09-06 05:29] LABS: ALT (SGPT) 14 U/L (8-55); AST (SGOT) 12 U/L (5-34); Albumin 3.3 g/dL (3.4-4.8); Alkaline Phosphatase 90 U/L (40-110); Anion Gap 15 mmol/L (10-20); BUN (Urea Nitrogen) 31 mg/dL (8.4-25.7); Bilirubin, Total 0.6 mg/dL (0.2-1.2); Calc. Creatinine Clearance 47 mL/min (70-130); Calcium 9.6 mg/dL (7.8-10.44); Carbon Dioxide 23 mmol/L (23-31); Chloride 102 mmol/L (98-107); Estimated GFR 66; Globulin 3.6 g/dL (2.4-3.5); Glucose 190 mg/dL (83-110); Potassium 3.5 mmol/L (3.5-5.1); Protein, Total 6.9 g/dL (5.8-8.1); Sodium 136 mmol/L (136-145)
[2022-09-06] MEDS: hydrALAZINE 20 MG/ML VIAL SLOW IVP PRN (05:53)
[2022-09-06] MEDS: HumaLOG 300 UNITS/3 ML VIAL SC PRN ×3 (05:53→19:03)
[2022-09-06] MEDS: Dexamethasone 4 mg/ml Vial SLOW IVP SCH (08:49)
[2022-09-06] MEDS: Fluticasone Propionate Nasal Spray 16 gm Bottle NASAL SCH ×2 (08:56→20:37)
[2022-09-06] MEDS: Carvedilol 3.125 MG TAB PO SCH ×2 (08:57→17:53)
[2022-09-06] MEDS ORDERED: hydrALAZINE 20 MG/ML VIAL ONE (12:05)
[2022-09-06] MEDS ORDERED: CEFAZOLIN 2 GM VIAL ONE (12:36)
[2022-09-06] MEDS ORDERED: Sodium Chloride 0.9% 100 ML ONE (12:36)
[2022-09-06] MEDS ORDERED: FENTANYL 50 MCG/ML VIAL 50 MCG/ML VIAL ONE (12:53)
[2022-09-06] MEDS ORDERED: Dexamethasone 20 MG/5 ML VIAL ONE (12:57)
[2022-09-06] MEDS ORDERED: Ondansetron PF 4 MG/2 ML Vial ONE (12:57)
[2022-09-06] MEDS ORDERED: PHENYLEPHRINE-NS 100 MCG/ML 10 ML SYRINGE ONE (12:57)
[2022-09-06] MEDS ORDERED: PROPOFOL 200 MG/20 ML VIAL ONE (12:57)
[2022-09-06] MEDS ORDERED: Succinylcholine 200 MG/10 ml SYRINGE FS ONE (12:57)
[2022-09-06] MEDS: Sodium Chloride 0.65% Nasal 44 ML BOT EA NARE PRN (14:44)
[2022-09-06] MEDS ORDERED: hydrALAZINE 20 MG/ML VIAL IM SCH (14:45)
[2022-09-06] MEDS: Aspirin Chewable 81 MG TAB PO SCH (14:46)
[2022-09-06] MEDS ORDERED: Scopolamine 1.5 mg/72 hour Patch TD SCH (15:00)
[2022-09-06] MEDS ORDERED: hydrALAZINE 20 MG/ML VIAL SLOW IVP SCH (15:45)
[2022-09-06] MEDS: Acetaminophen 325 MG TAB PO PRN (17:52)
[2022-09-06] MEDS: Morphine 4 MG/ML VIAL SLOW IVP PRN (20:37)
[2022-09-06] MEDS: Atorvastatin Calcium 40 MG TAB PO SCH (20:37)
[2022-09-07] MEDS: Acetaminophen 325 MG TAB PO PRN ×3 (01:11→21:37)
[2022-09-07 05:16] LABS: #Lymphocytes 0.9 thou/uL (1.20-3.40); #Monocytes 0.5 thou/uL (0.11-0.59); #Neutrophils 12.9 thou/uL (1.40-6.50); %Eosinophils 0.1 % (0.0-10.0); %Lymphocytes 6.2 % (21.0-51.0); %Monocytes 3.3 % (0.0-10.0); %Neutrophils 90.5 % (42.0-75.0); Hemoglobin 12.3 g/dL (14.0-18.0); Mean Corpuscular HGB CONC 30.2 g/dL (32.0-36.0); Mean Corpuscular Hemoglobin 29.7 pg (27.0-31.0); Mean Corpuscular Volume 98.1 fl (78.0-98.0); Mean Platelet Volume 8.5 fL (7.4-10.4); Platelet Count 195 thou/uL (130-400); RBC Distribution Width 12.1 % (11.5-14.5); Red Blood Cell (RBC) Count 4.15 mill/uL (4.70-6.10); White Blood Cell (WBC) Count 14.3 thou/uL (4.8-10.8)
[2022-09-07 05:34] LABS: Anion Gap 12 mmol/L (10-20); BUN (Urea Nitrogen) 36 mg/dL (8.4-25.7); Calc. Creatinine Clearance 46 mL/min (70-130); Calcium 9.2 mg/dL (7.8-10.44); Carbon Dioxide 27 mmol/L (23-31); Chloride 101 mmol/L (98-107); Estimated GFR 64; Glucose 154 mg/dL (83-110); Magnesium 2.1 mg/dL (1.6-2.6); Potassium 3.7 mmol/L (3.5-5.1); Sodium 136 mmol/L (136-145)
[2022-09-07] MEDS: Morphine 4 MG/ML VIAL SLOW IVP PRN (06:11)
[2022-09-07] MEDS: Fluticasone Propionate Nasal Spray 16 gm Bottle NASAL SCH ×2 (10:29→21:38)
[2022-09-07] MEDS: Dexamethasone 4 mg/ml Vial SLOW IVP SCH (10:30)
[2022-09-07] MEDS: Aspirin Chewable 81 MG TAB PO SCH (10:34)
[2022-09-07] MEDS: Carvedilol 3.125 MG TAB PO SCH (13:14)
[2022-09-07] MEDS: HumaLOG 300 UNITS/3 ML VIAL SC PRN ×2 (13:49→18:30)
[2022-09-07] MEDS: Atorvastatin Calcium 40 MG TAB PO SCH (21:38)
[2022-09-08 05:17] LABS: #Lymphocytes 1.7 thou/uL (1.20-3.40); #Monocytes 0.6 thou/uL (0.11-0.59); #Neutrophils 7.8 thou/uL (1.40-6.50); %Eosinophils 0.1 % (0.0-10.0); %Lymphocytes 16.8 % (21.0-51.0); %Monocytes 5.5 % (0.0-10.0); %Neutrophils 77.6 % (42.0-75.0); Hemoglobin 12.4 g/dL (14.0-18.0); Mean Corpuscular HGB CONC 30.9 g/dL (32.0-36.0); Mean Corpuscular Hemoglobin 30.3 pg (27.0-31.0); Mean Corpuscular Volume 97.8 fl (78.0-98.0); Mean Platelet Volume 8.2 fL (7.4-10.4); Platelet Count 179 thou/uL (130-400); RBC Distribution Width 11.8 % (11.5-14.5)
[2022-09-08 05:56] LABS: Anion Gap 10 mmol/L (10-20); BUN (Urea Nitrogen) 33 mg/dL (8.4-25.7); Calc. Creatinine Clearance 55 mL/min (70-130); Carbon Dioxide 31 mmol/L (23-31); Chloride 100 mmol/L (98-107); Estimated GFR 79; Glucose 95 mg/dL (83-110); Potassium 3.4 mmol/L (3.5-5.1); Sodium 138 mmol/L (136-145)
[2022-09-08] MEDS: Dexamethasone 4 mg/ml Vial SLOW IVP SCH (08:57)
[2022-09-08] MEDS: Fluticasone Propionate Nasal Spray 16 gm Bottle NASAL SCH (08:57)
[2022-09-08] MEDS: Aspirin Chewable 81 MG TAB PO SCH (10:05)
[2022-09-08] MEDS: HumaLOG 300 UNITS/3 ML VIAL SC PRN (11:58)
[2022-09-08 12:36] VITALS: BP 196/89; TEMP 98.1
== END 2022-09-08 14:35 | disposition home or self-care (01) | DRG 478 ==
LOC: ERS 13:28 → SUATTDRO 13:28 → NEURO 17:47
PROVIDERS: ADMIT Student in an Organized Health Care Education/Training Program; ATTEND Student in an Organized Health Care Education/Training Program
PROC: 0NB Head and Facial Bones, Excision (ICD-10-PCS; 2022-09-04)
PROC: 0DH63UZ Insertion of Feeding Device into Stomach, Percutaneous Approach (ICD-10-PCS; principal; 2022-09-06)
DX: C79.51 Secondary malignant neoplasm of bone (principal); C79.49 Secondary malignant neoplasm of other parts of nervous system; E44.0 Moderate protein-calorie malnutrition; Z68.1 Body mass index [BMI] 19.9 or less, adult; H33.20 Serous retinal detachment, unspecified eye; C11.9 Malignant neoplasm of nasopharynx, unspecified; R13.12 Dysphagia, oropharyngeal phase; Z20.822 Contact with and (suspected) exposure to COVID-19; I25.10 Atherosclerotic heart disease of native coronary artery without angina pectoris; M19.90 Unspecified osteoarthritis, unspecified site; I10 Essential (primary) hypertension; E11.9 Type 2 diabetes mellitus without complications; E78.5 Hyperlipidemia, unspecified; R13.10 Dysphagia, unspecified; Z95.1 Presence of aortocoronary bypass graft; Z79.84 Long term (current) use of oral hypoglycemic drugs; Z79.82 Long term (current) use of aspirin; Z87.891 Personal history of nicotine dependence; Z79.899 Other long term (current) drug therapy
CPT/HCPCS: 36415; 36416; 70450; 70491; 70553; 71260; 72156; 74177; 80048; 80053; 81003; 81015; 83735; 84100; 85025; 85610; 85730; 88305; 88341; 88342; 96374; 96375; 96376; A9579; J0171; J0360; J1100; J1815; J2001; J2060; J2270; J2405; J2704; J3010; J3490; J7042; J7050; Q9967; U0003; U0005

== ENCOUNTER → 2022-09-20 | Outpatient (CLI) | payer MEDICARE | LOC: PET 11:45 | PROVIDERS: ATTEND Radiology Radiation Oncology | DX: C11.8 Malignant neoplasm of overlapping sites of nasopharynx (principal); C79.51 Secondary malignant neoplasm of bone | CPT/HCPCS: 78815; A9552 ==

== ENCOUNTER 2022-09-22 14:07 | Emergency (ER) | payer MEDICARE ==
[2022-09-22] MEDS ORDERED: Lorazepam 1 MG TAB ONE (14:58)
== END 2022-09-22 16:09 | disposition home or self-care (01) ==
LOC: ERS 14:07
DX: J95.00 Unspecified tracheostomy complication (principal); C76.0 Malignant neoplasm of head, face and neck; E11.9 Type 2 diabetes mellitus without complications; E78.5 Hyperlipidemia, unspecified; I10 Essential (primary) hypertension
CPT/HCPCS: 70360; 71045

== ENCOUNTER 2022-09-25 14:11 | Emergency (ER) | payer MEDICARE ==
[2022-09-25 15:33] LABS: Bacteria/HPF 4+ HPF (None Seen); Bilirubin Negative (Negative); Blood, Urine Trace (Negative); Clarity Clear (Clear); Glucose, Urine (Dipstick) Greater than 1000 mg/dL (Negative); Ketone, Urine Negative (Negative); Leukocyte 25 Leu/uL (Negative); Nitrite Negative (Negative); Protein, Urine (Dipstick) 10 mg/dL (Neg-Trace); Specific Gravity, Urine 1.024 (1.002-1.036); Squamous Epithelial None Seen HPF (0-3); Urobilinogen Normal mg/dL (Less than 2)
== END 2022-09-25 15:15 | disposition home or self-care (01) ==
LOC: ERS 14:11
DX: R33.9 Retention of urine, unspecified (principal); I10 Essential (primary) hypertension; E11.9 Type 2 diabetes mellitus without complications; E78.5 Hyperlipidemia, unspecified; Z79.82 Long term (current) use of aspirin; Z79.899 Other long term (current) drug therapy; Z79.84 Long term (current) use of oral hypoglycemic drugs
CPT/HCPCS: 51798; 81003; 81015; 87077; 87086; 87186

== ENCOUNTER 2022-11-13 13:45 | Emergency (ER) | payer MEDICARE ==
[2022-11-13 16:36] LABS: Bilirubin Negative (Negative); Blood, Urine 1+ (Negative); Clarity Clear (Clear); Glucose, Urine (Dipstick) Greater than 1000 mg/dL (Negative); Ketone, Urine Negative (Negative); Leukocyte 75 Leu/uL (Negative); Nitrite Negative (Negative); Protein, Urine (Dipstick) 10 mg/dL (Neg-Trace); Specific Gravity, Urine 1.011 (1.002-1.036); Squamous Epithelial 0-3 HPF (0-3); Urobilinogen Normal mg/dL (Less than 2); WBC/HPF 21-50 HPF (0-3); pH, Urine 7.5 (5.0-9.0)
[2022-11-13 16:37] LABS: Bacteria/HPF Rare-Few HPF (None Seen)
== END 2022-11-13 16:48 | disposition home or self-care (01) ==
LOC: ERS 13:45
DX: T83.091A Other mechanical complication of indwelling urethral catheter, initial encounter (principal); E11.9 Type 2 diabetes mellitus without complications; I10 Essential (primary) hypertension; Y84.6 Urinary catheterization as the cause of abnormal reaction of the patient, or of later complication, without mention of misadventure at the time of the procedure
CPT/HCPCS: 51702; 81003; 81015; 87086